=== PATIENT | female | born 1940 | race Caucasian/White ===

== ENCOUNTER 2021-04-03 06:32 | Day surgery (SDC) | payer MEDICARE, BC ==
[2021-04-03] MEDS ORDERED: Bupivacaine 0.5% 30 ML SDV ONE (06:50)
[2021-04-03] MEDS ORDERED: Nozin Nasal Sanitizer NASBOTH ONE (07:00)
[2021-04-03] MEDS ORDERED: ceFAZolin 1 GM in Premix Bag 1 BAG IV ONE (07:30)
[2021-04-03] MEDS ORDERED: Lactated Ringers 1,000 ML IV SCH (07:45)
[2021-04-03] MEDS ORDERED: fentaNYL 100 MCG/2 ML SDV ONE ×2 (08:09→08:57)
[2021-04-03] MEDS ORDERED: Midazolam 1 MG/ML 2 ML SDV ONE (08:09)
[2021-04-03] MEDS ORDERED: Propofol 200 MG/20 ML SDV ONE (08:09)
[2021-04-03] MEDS ORDERED: Dexamethasone 4 MG/ML SDV ONE (08:41)
[2021-04-03] MEDS ORDERED: Ondansetron 4 MG/2 ML SDV ONE (08:41)
[2021-04-03] MEDS ORDERED: Acetaminophen/HYDROcodone 325-5 MG Tab PO PRN (10:20)
[2021-04-03 11:19] VITALS: BP 148/72; PULSE 72
--- NOTE | 2021-04-10 20:46 | OR ---
DATE OF PROCEDURE: 04/03/2021 SURGEON: Aris Winslow MD PREOPERATIVE DIAGNOSES: 1. Chondromalacia of the right knee. 2. Medial meniscus tear, right knee. POSTOPERATIVE DIAGNOSES: 1. Posterior horn medial meniscus tear, right knee. 2. 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 PROCEDURES: 1. Arthroscopy right knee with partial medial meniscectomy. 2. Chondroplasty femoral trochlea with microfracture. ANESTHESIA: General. INDICATIONS: Xiomara is a 80-year-old female with a history of progressive right knee pain over the past couple of years. It has been interfering with her activities and has been able to tolerate much less activity over the past year or so. X-rays reveal fairly well- preserved joint spaces without complete joint space collapse. She has failed conservative treatment with activity modification, anti-inflammatories, and injection. MRI is consistent with a tear of the posterior horn of the medial meniscus and some chondromalacia of the patellofemoral joint. In order to try to avoid arthroplasty and increase her activity level, decision was made to proceed with arthroscopic intervention. Risks, benefits, and potential complications of the procedure were discussed with the patient as well as her son. DESCRIPTION OF PROCEDURE: After adequate anesthesia was obtained, the patient was placed supine with a tourniquet about the right upper thigh. Right leg was prepped and draped in a sterile fashion. Leg was exsanguinated and tourniquet inflated to 300 mmHg pressure. Standard inferior medial lateral portals were established. The scope was introduced. Patellofemoral joint was inspected. This revealed intact cartilage on the patella. The trochlea, however, showed full-thickness cartilage loss in the central portion with some loose articular flaps at the superior edge of the defect. Moving into the medial compartment, some grade 2 and early grade 3 changes of the medial femoral condyle were noted. A posterior horn tear primarily cleavage was noted the medial meniscus. Using a combination of a punch basket and shaver, this was trimmed back to a stable margin. All loose fragments were removed. Very small articular flap over the condyle was lightly debrided. ACL and PCL were intact. Lateral compartment showed some very minor degenerative changes of the meniscus with intact articular surfaces. Attention was returned to the patellofemoral joint as this was an area of significant symptoms for her. Shaver was used to remove the articular flaps at the superior edge as well as the periphery. The calcified layer was removed and a microfracture awl was utilized to perform a microfracture throughout the exposed surface. Tourniquet was released and confirmation of blood throw through the microfracture was noted. The knee was drained. Scope was withdrawn. Port sites were closed in a standard fashion, infiltrated with Marcaine and a sterile dressing was applied. The patient tolerated the procedure very well. There were no complications and taken from the operating room in stable condition. Aris Winslow MD /[id number] MTDD
== END 2021-04-03 11:15 | disposition home or self-care (01) ==
LOC: JP.SDS 06:32
PROVIDERS: ATTEND Specialist
DX: S83.241A Other tear of medial meniscus, current injury, right knee, initial encounter (principal); M94.262 Chondromalacia, left knee; I10 Essential (primary) hypertension; E78.5 Hyperlipidemia, unspecified; G89.29 Other chronic pain; N39.0 Urinary tract infection, site not specified; E03.9 Hypothyroidism, unspecified; Z79.899 Other long term (current) drug therapy; Z79.890 Hormone replacement therapy
CPT/HCPCS: 29879; 29881; A9270; J0690; J1100; J2250; J2405; J2704; J3010; J3490; J7120

== ENCOUNTER 2024-05-16 07:45 | Observation (INO) | payer MEDICARE, OTHER ==
[2024-05-16] MEDS ORDERED: Propofol 200 MG/20 ML SDV ONE (08:08)
[2024-05-16] MEDS ORDERED: Midazolam 1 MG/ML 2 ML SDV ONE (08:08)
[2024-05-16] MEDS ORDERED: fentaNYL 100 MCG/2 ML SDV ONE (08:08)
[2024-05-16] MEDS: Lactated Ringers 1,000 ML IV SCH (08:09)
[2024-05-16] MEDS: Nozin Nasal Sanitizer NASBOTH SCH ×2 (08:10→20:01)
[2024-05-16] MEDS ORDERED: oxyCODONE 5 MG Tab PO PRN (08:30)
[2024-05-16] MEDS ORDERED: Morphine 2 MG/ML SYRINGE IVPUSH PRN (08:31)
[2024-05-16] MEDS ORDERED: Magnesium Hydroxide 400 MG/5 ML Susp 30 ML Cup PO PRN (08:31)
[2024-05-16] MEDS ORDERED: Aspirin 325 MG Tab.EC PO SCH (09:00)
[2024-05-16] MEDS ORDERED: Non-Formulary Medication 1 Each (Metoprolol Succinate [Metoprolol Succinate] 100 MG Tab.Er PO SCH (09:00)
[2024-05-16] MEDS ORDERED: Metoprolol Succinate 25 MG Tab.ER PO SCH (09:00)
[2024-05-16] MEDS: ceFAZolin 2 GM in Premix Bag 1 BAG IV ONE (09:05)
[2024-05-16] MEDS: Tranexamic Acid 800 MG in Sodium Chloride 0.9% 50 ML IV ONE (09:35)
[2024-05-16] MEDS: Bupivacaine 0.5% 50 ML MDV ONE (09:47)
[2024-05-16] MEDS ORDERED: Lactated Ringers 1,000 ML ONE (10:08)
[2024-05-16] MEDS: oxyCODONE 5 MG Tab PO PRN (11:48)
[2024-05-16] MEDS: amLODIPine 5 MG Tab PO SCH ×2 (12:59→20:02)
[2024-05-16] MEDS: Cetirizine 10 MG Tab PO SCH (13:00)
[2024-05-16] MEDS: Acetaminophen 325 MG Tab PO SCH (13:04)
[2024-05-16] MEDS: ceFAZolin 2 GM in Premix Bag 1 BAG IV SCH (16:23)
[2024-05-16] MEDS: Sodium Chloride 0.9% 1,000 ML IV SCH (16:29)
[2024-05-16] MEDS: Ondansetron 4 MG/2 ML SDV IVPUSH PRN (17:37)
[2024-05-16] MEDS: atorvaSTATin 10 MG Tab PO SCH (20:01)
[2024-05-16] MEDS: FLUoxetine 10 MG Cap PO SCH (20:02)
[2024-05-16] MEDS: Ketorolac 15 MG/ML SDV IVPUSH PRN (20:13)
[2024-05-17] MEDS: Levothyroxine 112 MCG Tab PO SCH (07:07)
[2024-05-17] MEDS: Losartan 50 MG Tab PO SCH (07:08)
[2024-05-17] MEDS: Hydrochlorothiazide 12.5 MG Cap PO SCH (07:08)
[2024-05-17] MEDS: Aspirin 325 MG Tab.EC PO SCH (07:10)
[2024-05-17] MEDS ORDERED: FLUoxetine 10 MG Cap PO SCH (09:00)
[2024-05-17] MEDS: amLODIPine 5 MG **PTOM PO SCH (20:12)
[2024-05-17] MEDS: FLUOXETINE 10 MG PO SCH (20:12)
[2024-05-17] MEDS: SIMVASTATIN 20 MG PO SCH (20:13)
[2024-05-18] MEDS: Levothyroxine 100 MCG **PTOM PO SCH (08:06)
[2024-05-18] MEDS: Metoprolol Succinate 25 MG Tab.ER PO SCH (08:12)
[2024-05-18 08:14] VITALS: BP 139/52; PULSE 87
[2024-05-18] MEDS: Docusate Sodium 100 MG Cap PO PRN (08:46)
== END 2024-05-18 11:11 | disposition home or self-care (01) ==
LOC: JP.SDS 07:45 → JP.MS 12:13 → JP.SDS 05-17 08:50 → JP.MS 05-17 08:50
PROVIDERS: ADMIT Specialist; ATTEND Physician Assistant
DX: M17.11 Unilateral primary osteoarthritis, right knee (principal); I10 Essential (primary) hypertension; E03.9 Hypothyroidism, unspecified; K21.9 Gastro-esophageal reflux disease without esophagitis; E78.5 Hyperlipidemia, unspecified; Z79.890 Hormone replacement therapy; Z79.899 Other long term (current) drug therapy
CPT/HCPCS: 01402; 27447; 73560; 97110; 97116; 97161; 97165; 97530; A9270; C1713; C1776; G0378; J0665; J0690; J1885; J2250; J2405; J2704; J3010; J3490; J7030; J7120